=== PATIENT | male | born 1950 | race Caucasian/White ===

== ENCOUNTER 2022-03-13 15:36 | Emergency (ER) | payer MEDICARE ==
[~2022-03-13] VITALS: Ht 175.3 cm; Wt 99.8 kg
[2022-03-13] MEDS ORDERED: DEXAMETHASONE SOD PHOSPHATE 4 MG/ML 1ML VIAL IV SCH (16:00)
[2022-03-13] MEDS ORDERED: 0.9%NACL 1000ML 1,000 ML IV ONE (16:00)
[2022-03-13 16:38] VITALS: BP 166/65
[2022-03-13] MEDS ORDERED: FLUT16H NASAL (17:11)
[2022-03-13] MEDS ORDERED: ACET-66 PO (17:11)
== END 2022-03-13 17:40 | disposition home or self-care (01) ==
LOC: EDH 15:36
DX: U07.1 COVID-19 (principal)
CPT/HCPCS: 99283; 87635; 87804 ×2; C9803; J1100; J7030